=== PATIENT | male | born 1950 | race African-American/Black ===

== ENCOUNTER 2017-09-22 10:23 | Emergency (ER) | payer OTHER ==
[~2017-09-22] VITALS: Ht 172.7 cm; Wt 71.7 kg
--- NOTE | ~2017-09-22 | EKG ---
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: JLJESSICA : 1950 Requested By: Antonio Pang Order Number: [id number] MD: Damien De Leon Measurements Intervals [place] Rate: 95 P: 45 ID: 112 QRS: -9 QRSD: 82 T: 85 QT: 354 QTc: 445 Interpretive Statements Sinus rhythm Atrial premature complexes Borderline short ID interval Tall R wave in V2, consider RVH or PMI Minimal ST elevation, anterior leads Compared to ECG 01/24/2015 15:29:48 Atrial premature complex(es) now present Myocardial infarct finding now present ST (T wave) deviation now present Poor R-wave progression no longer present Early repolarization no longer present Electronically Signed On 09-22-2017 12:47:20 CDT by Damien De Leon [email or web address] <ELECTRONICALLY SIGNED> By: Damien De Leon MD 09/22/17 1247 104 1042 Damien De Leon MD /EPI
[~2017-09-22 10:23] MED LIST: ASPIRIN EC81 M1 PO; AZOR 10-40 MG1 EACH PO; COLACE100 MG PO; FLOMAX0.4 MG PO; GLIPIZIDE ER5 MG; GLIPIZIDE5 MG PO; GLUCOPHAGE1000 MG PO; LISINOPRIL40 MG; NORCO 5-325 TA1 EACH PO; PRINIVIL20 M1 PO; SENOKOT-S1 TA1 PO; SIMVASTATIN40 MG PO; TOPROL XL100 MG PO; TOPROL XL25 MG PO; ZOFRAN ODT4 MG PO
[2017-09-22] MEDS ORDERED: VITAMIN D1000 UNI1 PO (10:34)
[2017-09-22] MEDS ORDERED: CENTRUM SILVER1 EAC4 PO (10:34)
[2017-09-22 10:47] LABS: ABSOLUTE NEUTROPHILS 7.6 thou/uL (1.4-8.2); BASOPHILS 0.8 % (0.0-2.0); EOSINOPHILS 0.5 % (0.0-3.0); HEMATOCRIT 34.3 % (42.0-52.0); HEMOGLOBIN 11.1 gm/dL (14.0-18.0); LYMPHOCYTES 13.2 % (24.0-44.0); MCH 28.8 pg (26.0-34.0); MCHC 32.4 g/dL (28.0-37.0); MCV 88.8 fL (80.0-100.0); MONOCYTES 3.2 % (1.0-8.0); PLATELET COUNT 276 thou/uL (150-400); POLYS 82.3 % (36.0-66.0); RBC 3.86 mil/uL (4.50-6.00); RDW 14.5 % (10.5-14.5); WBC 9.2 thou/uL (4.0-11.0)
[2017-09-22 10:56] LABS: ANION GAP 12 mmol/L (7-16); BUN 57 mg/dL (7-18); CALCIUM 9.6 mg/dL (8.5-10.1); CHLORIDE 112 mmol/L (98-107); CO2 24 mmol/L (21-32); CREATININE 3.4 mg/dL (0.7-1.3); GLUCOSE 208 mg/dL (74-106); POTASSIUM 4.6 mmol/L (3.5-5.1); SODIUM 148 mmol/L (136-145)
[2017-09-22 11:00] LABS: PROTIME 10.5 Seconds (9.3-11.4)
[2017-09-22 11:04] LABS: MAGNESIUM 2.3 mg/dL (1.8-2.4); SGOT 17 U/L (15-37); SGPT 17 U/L (30-65); TOTAL BILIRUBIN 0.2 mg/dL (<0.1-1.0); TOTAL PROTEIN 7.4 g/dL (6.4-8.2); TROPONIN-I < 0.04 ng/mL (<0.06)
[2017-09-22 12:05] LABS: URINE BILIRUBIN NEGATIVE (Negative); URINE BLOOD 1+ (Negative); URINE CLARITY CLEAR; URINE COLOR YELLOW; URINE GLUCOSE-RANDOM* NEGATIVE (Negative); URINE KETONES NEGATIVE (Negative); URINE LEUKOCYTES-REFLEX NEGATIVE (Negative); URINE NITRITE-REFLEX NEGATIVE (Negative); URINE PROTEIN (DIPSTICK) 3+ (Negative); URINE SPECIFIC GRAVITY 1.025 (1.005-1.035); URINE UROBILINOGEN 0.2 E.U./dl (0.2-1.0)
[2017-09-22 12:19] LABS: HYALINE CASTS 4-10 Moderate /LPF (None Seen); SQUAMOUS 0-3 Few /LPF (0-3)
[2017-09-22 12:20] LABS: URINE WBC-REFLEX 0-5 Rare /HPF (0-5)
[2017-09-22 12:21] LABS: URINE RBC 3-10 Few /HPF (0-2)
[2017-09-22 12:22] LABS: AMORPHOUS URATES Moderate /LPF (None Seen); BACTERIA-REFLEX 1-9 Few /HPF (None Seen)
== END 2017-09-22 13:40 | disposition home or self-care (01) ==
LOC: ER 10:23
PROVIDERS: Physician Assistant
DX: R41.82 Altered mental status, unspecified (principal); E86.0 Dehydration; G45.9 Transient cerebral ischemic attack, unspecified; I12.9 Hypertensive chronic kidney disease with stage 1 through stage 4 chronic kidney disease, or unspecified chronic kidney disease; N18.9 Chronic kidney disease, unspecified; E11.22 Type 2 diabetes mellitus with diabetic chronic kidney disease; E78.5 Hyperlipidemia, unspecified

== ENCOUNTER 2018-01-31 15:39 | Emergency (ER) | payer OTHER ==
[~2018-01-31] VITALS: Ht 172.7 cm; Wt 71.2 kg
--- NOTE | ~2018-01-31 | EKG ---
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 : 1950 Requested By: Jorge Wu Order Number: [id number] MD: Damien De Leon Measurements Intervals [place] Rate: 104 P: 18 [place]: 120 QRS: -20 QRSD: 89 T: 104 QT: 330 QTc: 434 Interpretive Statements Sinus tachycardia Borderline left axis deviation RSR' in V1 or V2, right VCD or RVH Abnrm T, lateral leads, similar to prior EKG Baseline wander in lead(s) V6 Compared to ECG 09/22/2017 10:42:24 Electronically Signed On 02-01-2018 16:53:46 CDT by Damien De Leon [email or web address] <ELECTRONICALLY SIGNED> By: Damien De Leon MD 02/01/18 1653 1615 161 Damien De Leon MD /EPI
[~2018-01-31 15:39] MED LIST changes: +CENTRUM SILVER1 EAC4 PO; +VITAMIN D1000 UNI1 PO
[2018-01-31 16:23] LABS: ABSOLUTE NEUTROPHILS 6.7 thou/uL (1.4-8.2); BASOPHILS 0.5 % (0.0-2.0); EOSINOPHILS 1.5 % (0.0-3.0); HEMATOCRIT 32.4 % (42.0-52.0); HEMOGLOBIN 10.7 gm/dL (14.0-18.0); LYMPHOCYTES 6.3 % (24.0-44.0); MCHC 32.9 g/dL (28.0-37.0); MCV 88.1 fL (80.0-100.0); MONOCYTES 4.6 % (1.0-8.0); PLATELET COUNT 280 thou/uL (150-400); POLYS 87.1 % (36.0-66.0); RBC 3.68 mil/uL (4.50-6.00); RDW 13.9 % (10.5-14.5); WBC 7.6 thou/uL (4.0-11.0)
[2018-01-31 16:34] LABS: ANION GAP 8 mmol/L (7-16); BUN 31 mg/dL (7-18); CALCIUM 9.7 mg/dL (8.5-10.1); CHLORIDE 103 mmol/L (98-107); CO2 27 mmol/L (21-32); CREATININE 2.7 mg/dL (0.7-1.3); GLUCOSE 194 mg/dL (74-106); POTASSIUM 4.5 mmol/L (3.5-5.1); SODIUM 138 mmol/L (136-145)
[2018-01-31 16:43] LABS: ALBUMIN 3.5 g/dL (3.4-5.0); MAGNESIUM 1.8 mg/dL (1.8-2.4); SGOT 16 U/L (15-37); SGPT 14 U/L (30-65); TOTAL BILIRUBIN 0.3 mg/dL (<0.1-1.0); TROPONIN-I <0.06 ng/mL (<0.06)
[2018-01-31 17:47] LABS: URINE BILIRUBIN NEGATIVE (Negative); URINE BLOOD TRACE (Negative); URINE CLARITY CLEAR; URINE COLOR YELLOW; URINE GLUCOSE-RANDOM* 1+ (Negative); URINE KETONES NEGATIVE (Negative); URINE LEUKOCYTES-REFLEX NEGATIVE (Negative); URINE NITRITE-REFLEX NEGATIVE (Negative); URINE PROTEIN (DIPSTICK) 3+ (Negative); URINE SPECIFIC GRAVITY 1.025 (1.005-1.035); URINE UROBILINOGEN 0.2 E.U./dl (0.2-1.0)
[2018-01-31 17:54] LABS: BACTERIA-REFLEX 1-9 Few /HPF (None Seen); FINE GRANULAR CASTS 0-3 Few /LPF (None Seen); MUCUS None Seen strn/LPF (None Seen); SQUAMOUS 0-3 Few /LPF (0-3); URINE RBC 0-2 Rare /HPF (0-2); URINE WBC-REFLEX 0-5 Rare /HPF (0-5)
[2018-01-31 17:56] LABS: AMP/METHAMP Negative (Negative); BARBITURATES Negative (Negative); BENZODIAZEPINES Negative (Negative); COCAINE Negative (Negative); METHADONE Negative (Negative); OPIATES Negative (Negative); PCP Negative (Negative)
[2018-01-31 18:03] LABS: CRYSTALS None Seen /LPF (None Seen)
== END 2018-01-31 18:32 | disposition home or self-care (01) ==
LOC: ER 15:39
PROVIDERS: Emergency Medicine
DX: R41.82 Altered mental status, unspecified (principal); R50.9 Fever, unspecified; D64.9 Anemia, unspecified; N18.9 Chronic kidney disease, unspecified; I12.9 Hypertensive chronic kidney disease with stage 1 through stage 4 chronic kidney disease, or unspecified chronic kidney disease; E11.9 Type 2 diabetes mellitus without complications; E78.5 Hyperlipidemia, unspecified; Z90.49 Acquired absence of other specified parts of digestive tract; Z86.73 Personal history of transient ischemic attack (TIA), and cerebral infarction without residual deficits

== ENCOUNTER 2019-07-27 11:04 | Inpatient (IN) | payer MEDICARE ==
[~2019-07-27] VITALS: Ht 172.7 cm; Wt 66.8 kg
[2019-07-27 11:11] VITALS: BP 144/96
[2019-07-27 11:31] LABS: ABSOLUTE NEUTROPHILS 4.6 thou/uL (1.4-8.2); BASOPHILS 1.1 % (0.0-2.0); EOSINOPHILS 1.3 % (0.0-3.0); HEMATOCRIT 36.6 % (42.0-52.0); HEMOGLOBIN 11.8 gm/dL (14.0-18.0); LYMPHOCYTES 26.8 % (24.0-44.0); MCH 29.7 pg (26.0-34.0); MCHC 32.2 g/dL (28.0-37.0); MCV 92.3 fL (80.0-100.0); MONOCYTES 2.7 % (1.0-8.0); PLATELET COUNT 239 thou/uL (150-400); POLYS 68.1 % (36.0-66.0); RBC 3.96 mil/uL (4.50-6.00); RDW 14.5 % (10.5-14.5); WBC 6.8 thou/uL (4.0-11.0)
[2019-07-27 11:32] LABS: ANION GAP 7 mmol/L (7-16); BUN 53 mg/dL (7-18); CALCIUM 9.8 mg/dL (8.5-10.1); CHLORIDE 112 mmol/L (98-107); CO2 26 mmol/L (21-32); CREATININE 3.9 mg/dL (0.7-1.3); GLUCOSE 116 mg/dL (74-106); POTASSIUM 5.8 mmol/L (3.5-5.1); SODIUM 145 mmol/L (136-145)
[2019-07-27 11:42] LABS: ALBUMIN 3.7 g/dL (3.4-5.0); SGOT 15 U/L (15-37); SGPT 20 U/L (30-65); TOTAL BILIRUBIN 0.3 mg/dL (<0.1-1.0); TOTAL PROTEIN 7.7 g/dL (6.4-8.2); TROPONIN-I <0.06 ng/mL (<0.06)
[2019-07-27 12:27] LABS: URINE BILIRUBIN NEGATIVE (Negative); URINE BLOOD 2+ (Negative); URINE CLARITY SL CLOUDY; URINE COLOR YELLOW; URINE GLUCOSE-RANDOM* NEGATIVE (Negative); URINE KETONES NEGATIVE (Negative); URINE LEUKOCYTES-REFLEX 1+ (Negative); URINE NITRITE-REFLEX NEGATIVE (Negative); URINE PROTEIN (DIPSTICK) 2+ (Negative); URINE SPECIFIC GRAVITY 1.025 (1.005-1.035); URINE UROBILINOGEN 0.2 E.U./dl (0.2-1.0)
[2019-07-27 12:34] LABS: CASTS None Seen /LPF (None Seen); RENAL EPITHELIAL CELLS 0-3 Few /LPF (None Seen); SQUAMOUS 0-3 Few /LPF (0-3); TRANSITIONAL EPITHEL CELL 4-10 Moderate /LPF (None Seen)
[2019-07-27 12:35] LABS: AMORPHOUS URATES Moderate /LPF (None Seen); URINE RBC 0-2 Rare /HPF (0-2); URINE WBC-REFLEX 6-15 Few /HPF (0-5)
[2019-07-27 13:14] VITALS: BP 165/96
[2019-07-27 14:47] LABS: CALCIUM 9.2 mg/dL (8.5-10.1); CREATININE 3.9 mg/dL (0.7-1.3)
[2019-07-27 14:52] LABS: POTASSIUM 6.8 mmol/L (3.5-5.1)
[2019-07-27 15:01] VITALS: BP 143/90
--- NOTE | 2019-07-27 16:33 | NUR ---
PT ARRIVED TO UNIT FROM ER AT APPROX 1515 BY ER STAFF. PT ALERT, ORIENTED TO PERSON, PT STATED MONTH WAS NOVEMBER. PT SLOW TO RESPOND, HX STROKE. PT OCCASIONALLY WILL STARE WHEN ASKED QUESTIONS, SOMETIMES REPLYING WITH ANSWERS. O2 SATS WNL ON ROOM AIR. DENIES CP/SOA. PT UP X1 ASSIST TOLERATING FAIR. ADMISSION COMPLETE, CONSENTS SIGNED. TELE STRIP PRINTED AND DOCUMENTED. WILL FOLLOW FURTHER ORDERS. DENIES NEEDS AT THIS TIME. WILL CONTINUE TO MONITOR AND FOLLOW POC.
[2019-07-27 17:56] LABS: MAGNESIUM 2.3 mg/dL (1.8-2.4)
[2019-07-27 17:57] LABS: POTASSIUM 5.4 mmol/L (3.5-5.1)
[2019-07-27 20:08] VITALS: BP 149/79
[2019-07-28 04:04] VITALS: BP 158/86
[2019-07-28 05:30] LABS: BASOPHILS 1.2 % (0.0-2.0); HEMATOCRIT 29.1 % (42.0-52.0); LYMPHOCYTES 36.6 % (24.0-44.0); MCH 30.9 pg (26.0-34.0); MCHC 34.2 g/dL (28.0-37.0); MCV 90.3 fL (80.0-100.0); MONOCYTES 4.9 % (1.0-8.0); PLATELET COUNT 187 thou/uL (150-400); POLYS 55.3 % (36.0-66.0); RBC 3.23 mil/uL (4.50-6.00); RDW 13.9 % (10.5-14.5); WBC 5.5 thou/uL (4.0-11.0)
[2019-07-28 06:00] LABS: CALCIUM 8.5 mg/dL (8.5-10.1); MAGNESIUM 1.9 mg/dL (1.8-2.4)
[2019-07-28 06:00] LABS: URINE BILIRUBIN NEGATIVE (Negative); URINE BLOOD 2+ (Negative); URINE CLARITY CLEAR; URINE COLOR YELLOW; URINE GLUCOSE-RANDOM* NEGATIVE (Negative); URINE KETONES NEGATIVE (Negative); URINE LEUKOCYTES NEGATIVE (Negative); URINE NITRITE NEGATIVE (Negative); URINE PROTEIN (DIPSTICK) 2+ (Negative); URINE SPECIFIC GRAVITY 1.015 (1.005-1.035); URINE UROBILINOGEN 0.2 E.U./dl (0.2-1.0)
[2019-07-28 06:09] LABS: URINE PROTEIN-RANDOM* 93.4 mg/dL (<11.9)
[2019-07-28 06:32] LABS: CREATININE 2.9 mg/dL (0.7-1.3); POTASSIUM 4.4 mmol/L (3.5-5.1)
[2019-07-28 06:40] LABS: SQUAMOUS 0-3 Few /LPF (0-3)
[2019-07-28 06:41] LABS: CASTS None Seen /LPF (None Seen); MUCUS 0-3 Light strn/LPF (None Seen)
[2019-07-28 06:42] LABS: BACTERIA None Seen /HPF (None Seen); CRYSTALS None Seen /LPF (None Seen); URINE RBC 3-10 Few /HPF (0-2); URINE WBC 0-5 Rare /HPF (0-5)
[2019-07-28 07:35] VITALS: BP 163/101
--- NOTE | 2019-07-28 13:20 | NUR ---
PT CARE ASSUMED AT 0700, PT ALERT AND ORIENTED X1, CONFUSED AND DELAYED RESPONSE. PT ABLE TO FOLLOW COMMANDS AND IS AWARE HE IS IN THE HOSPITAL. PT DENIES CHEST PAIN, NAUSEA AND VOMITING. NO SIGNS OF DISTRESS NOTED. ASSESSMENT COMPLETED. PT CALLED A COUPLE OF TIME AND UPDATED ABOUT PT CARE. CALL LIGHT AND TABLE IN REACH. BED AT LOWEST LEVEL WITH ALARM ON. WILL CONTINUE TO MONITOR.
--- NOTE | 2019-07-28 15:26 | NUR ---
Patient admits with UTI. Sp with . She reports patient resides with her in independent walker. Prev CVA in 2011. Short term memory loss from stroke per . Patient does not drive. He uses walker in community. Patient has shower chair and cues patient to wash. 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 patient attends [facility] while at work. Daycare closed at this time due to COVID. PCP is Dr Marlon Buchanan. Thherapy evals in process patient may need rehab/HH at [facility]. Casegmt following
[2019-07-28 16:07] VITALS: BP 167/94
[2019-07-28 19:55] VITALS: BP 164/95
[2019-07-29] VITALS: BP 137/93
[2019-07-29 03:40] VITALS: BP 155/95
[2019-07-29 05:25] LABS: ALBUMIN 3.2 g/dL (3.4-5.0); CALCIUM 8.5 mg/dL (8.5-10.1); CREATININE 2.6 mg/dL (0.7-1.3); PHOSPHORUS 3.8 mg/dL (2.5-4.9); POTASSIUM 4.1 mmol/L (3.5-5.1)
--- NOTE | 2019-07-29 06:48 | NUR ---
SLEPT PART OF SHIFT. CRAWLING OUT OF BED QUICKLY WHEN INCONTINENT. BED ALARM ON BUT PATIENT IS QUICK. MOVED CLOSER TO DESK. FREQUENT ROUNDING. DENIES COMPLAINTS OF PAIN THIS SHIFT. REMAINS ORIENTED TO SELF AND DATE, SOMETIMES TO PLACE. REORIENT NEEDED. PROGRESSING SLOWLY TOWARDS DISCHARGE GOALS. CONTINUE TO ASSES CLOSELY.
[2019-07-29 07:39] VITALS: BP 164/90
--- NOTE | 2019-07-29 09:06 | NUR ---
ASSUMED CARE OF PT AT SHIFT CHANGE, ALERT TO SELF/BDATE, REPORTS OF IMPULSIVITY, NONE THUS FAR. FOOD SET UP TO AVOID HIM JUMPING UP. NO C/O PAIN AT THIS TIME. SEE SEPARATE INTERVENTIONS FOR ASSESSMENTS , SPOUSE CALLED TO VISIT WITH HIM. ENCOURAGED PT TO USE CALL LIGHT AND HE DOES RETURN DEMO SUCCESSFULLY. WILL CONTINUE TO MONITOR
--- NOTE | 2019-07-29 14:09 | NUR ---
[facility] accept however they have checked pt's ins plan and [facility] is out of network with his ins plan. Referral called and faxed to [facility]. They are reviewing and believe they are in network with his plan. out running errands per unit RN and she will be calling in for an update at 5pm today. Nursing to update pt/spouse and advise of any questions or concerns. Pt may be dc ready tomorrow. Will follow.
[2019-07-29 15:38] VITALS: BP 143/74
--- NOTE | 2019-07-29 17:35 | NUR ---
RECEIVED PT'S CARE AROUND 1700; PT. ON CHAIR; ALERT TO PERSON; NO C/O PAIN; ASSESSMENT PERFORMED; SR ON THE MONITOR; AFTER SETTING DINNER ABLE TO EAT INDEPENDENTLY; FALL PRECAUTIONS ON PLACE; MONITORING; ASSESSMENT CHARGED; FOLLOWING POC; WILL PASS ON REPORT;
--- NOTE | 2019-07-29 18:05 | NUR ---
GAVE REPORT TO ANOTHER RN CHARGE IS DISTRIBUTING PT'S TO THOSE WITH LESS. PASSED ON INFO PT'S SPOUSE NEEDS TO BE CALLED IN A.M. D/C WILL BE DISCUSSED AND WHEN THE PT WILL LEAVE FOR REHAB. PT'S SPOUSE ALSO SAID SHE'D CALL IN AM TO FIND OUT UPDATES
[2019-07-29 20:15] VITALS: BP 164/99
[2019-07-30 00:07] LABS: GLYCOHEMOGLOBIN (HGB A1C) 5.8 % (4.8-5.6)
[2019-07-30 04:15] VITALS: BP 175/107
[2019-07-30 05:38] LABS: CREATININE 2.6 mg/dL (0.7-1.3); PHOSPHORUS 4.8 mg/dL (2.5-4.9); POTASSIUM 4.4 mmol/L (3.5-5.1)
--- NOTE | 2019-07-30 05:42 | NUR ---
PATIENTS CARES WERE ASSUMED AT SHIFT CHANGE. PATIENT WAS ASSESSED AND MEDS WERE PASSED. PATIENT WAS UP WITH STAND BY DUE TO HIS UNSTEADY GATE. UP THEW THE NIGHT MULITI TIMES TO URINATE. HOURLY ROUNDING WAS DONE. THE BED IS IN A LOW AND LOCK POSITION. THE BED ALARM IS ON.
[2019-07-30 07:55] VITALS: BP 101/83
--- NOTE | 2019-07-30 09:37 | 2DMMODE ---
[facility] [place] [address] 2 D/M-MODE ECHOCARDIOGRAM Name: RENETTAMicAMIE Room #: 204-P ADM IN M.R.#: [id number] Admission: 07/27/19 Attend Phys: Jesus Turcios MD Discharge: Date of : 46 Report #: [id number] THIS REPORT FOR: cc: Marlon Gamez MD, John R. MD Park, Jin S. MD ~ APPROVED REPORT Study performed: 07/30/2019 08:23:03 EXAM: Comprehensive 2D, Doppler, and color-flow Echocardiogram Patient Location: Echo lab Room #: 204 Status: routine BSA: 1.79 HR: 85 bpm BP: 175/107 mmHg Rhythm: NSR Other Information Study Quality: Adequate Indications Dizziness, uncontrolled HTN. Hx: CVA, HTN, HLP, DLP. 2D Dimensions RVDd: 34.17 mm IVSd: 11.80 (7-11mm) LVOT Diam: 21.54 (18-24mm) LVDd: 40.39 mm PWd: 11.50 (7-11mm) LVDs: 29.52 (25-40mm) Aortic Root: 33.04 mm Volumes Left Atrial Volume (Systole) Single Plane 4CH: 51.68 mL Single Plane 2CH: 55.05 mL LA ESV Index: 32.00 mL/m2 Aortic Valve AoV Peak Pankaj.: 1.03 m/s AO Peak Gr.: 4.56 mmHg LVOT Max P.34 mmHg LVOT Max V: 0.91 m/s JUDITH Vmax: 3.23 cm2 [facility] [address] [place] [address] 2 D/M-MODE ECHOCARDIOGRAM Name: AMIE GUILLEN Room #: 204-P [facility]#: [id number] Admission: 07/27/19 Attend Phys: Jesus Turcios, Discharge: Date of : 46 Report #: [id number] Mitral Valve E/A Ratio: 0.6 MV Decel. Time: 274.70 ms MV E Max Pankaj.: 0.50 m/s MV A Pankaj.: 0.82 m/s MV PHT: 79.66 ms IVRT: 103.81 ms Pulmonary Valve PV Peak Pankaj.: 1.08 m/s PV Peak Gr.: 4.64 mmHg Pulmonary Vein P Vein S: 0.76 m/s P Vein D: 0.30 m/s P Vein S/D Ratio: 2.53 Left Ventricle The left ventricle is normal size. There is normal LV segmental wall motion. Mild basal septal hypertrophy is present. Left ventricular systolic function is hyperdynamic. LVEF is 65-70%. Mild diastolic dysfunction is present (impaired relaxation pattern). Right Ventricle The right ventricle is normal size. The right ventricular systolic function is normal. Atria The left atrium size is normal. The right atrium size is normal. Aortic Valve The aortic valve is normal in structure. Leaflets are mildly thickened and calcified. No aortic regurgitation is present. There is no aortic valvular stenosis. Mitral Valve The mitral valve is normal in structure. Trace mitral regurgitation. No evidence of mitral valve stenosis. Tricuspid Valve The tricuspid valve is normal in structure. Trace tricuspid regurgitation. Unable to assess PA pressure. Pulmonic Valve The pulmonary valve is normal in structure. Trace pulmonic [facility] [place] [address] 2 D/M-MODE ECHOCARDIOGRAM Name: AMIE GUILLEN Room #: 204-P [facility] IN ..#: [id number] Admission: 07/27/19 Attend Phys: Jesus Turcios, Discharge: Date of : 46 Report #: [id number] regurgitation. Great Vessels The aortic root is normal in size. IVC is normal in size and collapses >50% with inspiration. Pericardium There is no pericardial effusion. <Conclusion> The left ventricle is normal size. Left ventricular systolic function is hyperdynamic. Mild diastolic dysfunction is present (impaired relaxation pattern). The right ventricle is normal size. The left atrium size is normal. The aortic valve is normal in structure. Leaflets are mildly thickened and calcified. Trace mitral regurgitation. Trace tricuspid regurgitation. <ELECTRONICALLY SIGNED> By: Sabino Rossi MD 07/30/19934 4 4 Sabino Rossi MD /INF
[2019-07-30 11:05] VITALS: BP 155/81
--- NOTE | 2019-07-30 12:18 | EKG ---
[facility] [place] [address] ELECTROCARDIOGRAM REPORT Name: AMIE GUILLEN Room #: 204-P ADM IN M.R.#: [id number] Admission: 07/27/19 Attend Phys: Jesus Turcios MD Discharge: Date of : 46 Report #: [id number] THIS REPORT FOR: cc: Marlon Gamez MD, John R. MD Couchonnal, Luis F. 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 : 1950 Requested By: Tucker Foster Order Number: [id number] MD: Damien De Leon Measurements Intervals [place] Rate: 83 P: 38 OR: 126 QRS: -16 QRSD: 114 T: 104 QT: 389 QTc: 457 Interpretive Statements Sinus rhythm Borderline intraventricular conduction delay Abnrm T, consider ischemia, anterolateral lds Compared to ECG 07/27/2019 12:12:15 Possible ischemia now present ST (T wave) deviation now present Electronically Signed On 07-30-2019 10:35:30 CDT by Damien De Leon [email or web address] <ELECTRONICALLY SIGNED> By: Damien De Leon MD 07/30/19 1035 4 4 Damien De Leon MD /EPI
--- NOTE | 2019-07-30 12:25 | EKG ---
[facility] [place] [address] ELECTROCARDIOGRAM REPORT Name: AMIE GUILLEN Room #: 204-P ADM IN M.R.#: [id number] Admission: 07/27/19 Attend Phys: Jesus Turcios MD Discharge: Date of : 46 Report #: [id number] THIS REPORT FOR: cc: Marlon Gamez MD, John R. 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 : 1950 Requested By: Antonio Pang Order Number: [id number] MD: Williams Albarado Measurements Intervals [place] Rate: 87 P: 69 FL: 126 QRS: -15 QRSD: 78 T: 64 QT: 353 QTc: 425 Interpretive Statements Sinus rhythm Borderline left axis deviation Abnormal R-wave progression, early transition Compared to ECG 01/31/2018 16:15:40 Sinus tachycardia no longer present Lateral T wave abnormality is no longer present Electronically Signed On 07-27-2019 16:25:41 CDT by Williams Albarado [email or web address] <ELECTRONICALLY SIGNED> By: Williams Albarado MD, [facility] 07/27/19 1625 1212 1212 Williams Albarado MD, [facility] /EPI
[2019-07-30] MEDS ORDERED: PANTOPRAZOLE SO40 M1 PO (13:05)
[2019-07-30] MEDS ORDERED: B-12500 MCG PO (13:05)
[2019-07-30] MEDS ORDERED: MIRALAX17 GM PO (13:05)
[2019-07-30] MEDS ORDERED: CARDIZEM CD 18180 M3 PO (13:08)
--- NOTE | 2019-07-30 14:16 | NUR ---
Pt dcing to [facility] this afternoon at 4pm via their w/c van. Care team updated. Dc orders and covid screening faxed to intake. They have spoken to the pt's ins plan. Chart copy ready to send with the pt. Pt's spouse aware and will be meeting him there to bring him clothes and do his admission paperwork. She is thrilled he will be getting rehab and be stronger upon returning home. Nursing to call report.
[2019-07-30 15:20] VITALS: BP 161/83
--- NOTE | 2019-07-30 16:08 | NUR ---
ASSUMMED PT CARE AT APPROXIMATELY 0700. PT AWAKER AND ORIENTED TO PERSON AND PLACE. PT C HX OF DEMENTIA. ASSESSMENT CHARTED. FALL PRECAUTIONS IN PLACE. PT DENIES HAVING CHEST PAIN. PT DENIES HAVING SOB. PT DENIES HAVING ACUTE PAIN. PT DISCHARGING TO SNF FACILITY. REPORT GIVEN TO PATTI CRUZ. NANCY STATED UNDERSTANDING AND DENIED HAVING FURTHER QUESTIONS. EDUCATED FAMILY ABOUT POC. PT STATED UNDERSTANDING AND DENIED HAVING FURTHER QUESTIONS. IV DC. TELE DC. INFORMED DR. WARD ABOUT EKG RESULTS. DR. WARD STATED UNDERSTANDING AND WANTED TO SPEAK C DR. SANCHEZ. DR. SANCHEZ STATED NO NEW ORDERS AND HE DID NOT BELIEVE HE NEEDED TO BE CONSULTED. INFORMED DR. WARD OF PT'S ELEVATED BP. DR. WARD STATED UNDERSTANDING C NO NEW ORDERS. PT SENT TO FACILITY WITH FACESHEET, DISCHARGE EDUCATION, AND DISCHARGE EDUCATION. PT RECIEVED MEDICAL TRANSPORT OFF UNIT. PT RECIEVING MEDICAL TRANSPORT TO SNF. PT COMFORTABLE. PT DENIES HAVING FURTHER CONCERNS. VITAL SIGNS STABLE. BLOOD SUGARS STABLE.
--- NOTE | 2019-08-04 07:10 | HC ---
[facility] [place] [address] CONSULTATION Name: AMIE GUILLEN Room #: 204-P [facility] IN M.R.#: [id number] Admission: 07/27/19 Attend Phys: Jesus Turcios MD Discharge: 07/30/19 Date of : 46 Report #: [id number] THIS REPORT FOR: cc: Marlon Gamez MD,Leonardo Lopez MD, MD ~ CC: Marlon Turcios REASON FOR THE CONSULTATION: Elevated creatinine. REASON FOR THE PRESENTATION: Confusion. HISTORY OF PRESENT ILLNESS: The patient is known to have CVA and unfortunately he is not very accurate on the details of his history. He really does not know why he is here in the hospital. He does not know of any of his medical problems in the past. He was brought by his due to confusion. He was found to be in an acute kidney injury, mandating Nephrology consultation. The patient denies any prior knowledge of kidney problems; however, I am not really sure how accurate those information are. He carries a diagnosis of diabetes mellitus and hypertension. He was found to be hyperkalemic on his presentation; however, this has improved with IV fluid. I was consulted to manage his acute kidney injury. PAST MEDICAL HISTORY: 1. Per medical chart. 2. Diabetes mellitus. 3. Hypertension. ALLERGIES: No known drug allergies. FAMILY HISTORY: Unobtainable given the patient's current confusion and unawareness of his medical problems. SOCIAL HISTORY: He lives with his who brought him to the hospital. No reported drug or alcohol abuse. HOME MEDICATIONS: 1. Metformin. 2. Amlodipine. 3. Simvastatin. 4. Aspirin. 5. Metoprolol. REVIEW OF SYSTEMS: Unobtainable given the patient's current mentation. PHYSICAL EXAMINATION: [facility] [address] [place] [address] CONSULTATION Name: AMIE GUILLEN Room #: 204-P [facility] IN [facility].#: [id number] Admission: 07/27/19 Attend Phys: Jesus Turcios MD Discharge: 07/30/19 Date of : 46 Report #: [id number] GENERAL: He is oriented, but he is not really sure about the details of his presentation. VITAL SIGNS: Temperature is 36.4, blood pressure is 158/86. HEAD AND NECK: No jugular venous distention. CHEST: Decreased air entry bilaterally. ABDOMEN: Soft, nontender with no hepatosplenomegaly. EXTREMITIES: Lower extremities, no edema. LABORATORY VALUES: Hemoglobin is 10.0. Sodium is 140. Potassium is 4.4. BUN is 43. Creatinine is 2.9. UA showed some protein with some white blood cells and red cells. Urine culture is pending. IMAGING: Ultrasound of the kidneys was consistent with bilateral renal cysts. ASSESSMENT, IMPRESSION, PLAN: 1. Acute kidney injury. 2. Chronic kidney disease, unknown baseline. 3. Bilateral renal cysts. 4. Hyperkalemia. 5. The patient's creatinine seems to be improving with hydration, suggesting that this could be all due to poor oral intake, responding to IV fluid resuscitation. 6. He does have an evidence of chronic kidney disease based on his UA and ultrasound finding. 7. At this point, I will continue with the IV fluid. 8. His hyperkalemia issues have resolved. 9. We will see where his kidney function will settle. 10. No nephrotoxins. 11. Watch urine electrolytes. 12. Watch urine output. 13. We will continue to follow. <ELECTRONICALLY SIGNED> By: Leonardo Chamberlain MD 08/04/19 0710 0743 0806 Leonardo Chamberlain MD /nt
== END 2019-07-30 16:00 | DRG 682 ==
LOC: ER 11:04 → 2N 13:28 → EROBS 13:28 → 2N 15:04
PROVIDERS: Hospitalist; Nurse Practitioner; Physician Assistant; ADMIT Internal Medicine
DX: N17.0 Acute kidney failure with tubular necrosis (principal); G93.41 Metabolic encephalopathy; N39.0 Urinary tract infection, site not specified; E46 Unspecified protein-calorie malnutrition; N17.9 Acute kidney failure, unspecified; E78.5 Hyperlipidemia, unspecified; E87.6 Hypokalemia; E11.22 Type 2 diabetes mellitus with diabetic chronic kidney disease; F03.90 Unspecified dementia, unspecified severity, without behavioral disturbance, psychotic disturbance, mood disturbance, and anxiety; N18.9 Chronic kidney disease, unspecified; I12.9 Hypertensive chronic kidney disease with stage 1 through stage 4 chronic kidney disease, or unspecified chronic kidney disease; E87.5 Hyperkalemia; N28.1 Cyst of kidney, acquired; E86.0 Dehydration; Z87.891 Personal history of nicotine dependence; Z86.73 Personal history of transient ischemic attack (TIA), and cerebral infarction without residual deficits; Z68.22 Body mass index [BMI] 22.0-22.9, adult
CPT/HCPCS: 10081

== ENCOUNTER 2019-08-09 13:25 | Inpatient (IN) | payer MEDICARE ==
[~2019-08-09] VITALS: Ht 172.7 cm; Wt 81.6 kg
[~2019-08-09 13:25] MED LIST changes: +B-12500 MCG PO; +CARDIZEM CD 18180 M3 PO; +MIRALAX17 GM PO; +PANTOPRAZOLE SO40 M1 PO
[2019-08-09 13:28] VITALS: BP 179/86
[2019-08-09] MEDS ORDERED: CLONIDINE HCL0.2 M2 PO (14:00)
[2019-08-09] MEDS ORDERED: LIPITOR 20 MG T20 M1 PO (14:01)
[2019-08-09 14:13] LABS: ABSOLUTE NEUTROPHILS 4.6 thou/uL (1.4-8.2); EOSINOPHILS 2.1 % (0.0-3.0); HEMATOCRIT 27.4 % (42.0-52.0); HEMOGLOBIN 9.1 gm/dL (14.0-18.0); LYMPHOCYTES 19.3 % (24.0-44.0); MCH 30.4 pg (26.0-34.0); MCHC 33.3 g/dL (28.0-37.0); MCV 91.1 fL (80.0-100.0); MONOCYTES 7.2 % (1.0-8.0); PLATELET COUNT 234 thou/uL (150-400); POLYS 70.4 % (36.0-66.0); RBC 3.01 mil/uL (4.50-6.00); WBC 6.5 thou/uL (4.0-11.0)
[2019-08-09 14:25] LABS: CREATININE 3.4 mg/dL (0.7-1.3); MAGNESIUM 2.3 mg/dL (1.8-2.4); POTASSIUM 4.8 mmol/L (3.5-5.1)
[2019-08-09 14:56] LABS: URINE BILIRUBIN NEGATIVE (Negative); URINE BLOOD TRACE (Negative); URINE CLARITY CLEAR; URINE COLOR YELLOW; URINE GLUCOSE-RANDOM* TRACE (Negative); URINE KETONES NEGATIVE (Negative); URINE LEUKOCYTES-REFLEX NEGATIVE (Negative); URINE NITRITE-REFLEX NEGATIVE (Negative); URINE PROTEIN (DIPSTICK) 2+ (Negative); URINE UROBILINOGEN 0.2 E.U./dl (0.2-1.0)
[2019-08-09 15:11] LABS: BACTERIA-REFLEX None Seen /HPF (None Seen); CASTS None Seen /LPF (None Seen); SQUAMOUS None Seen /LPF (0-3); URINE RBC None Seen /HPF (0-2); URINE WBC-REFLEX 0-5 Rare /HPF (0-5)
[2019-08-09 15:12] LABS: CRYSTALS None Seen /LPF (None Seen)
--- NOTE | 2019-08-09 15:23 | EKG ---
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[facility] : 1950 Requested By: Odilon Gomez Order Number: [id number] MD: Damien De Leon Measurements Intervals [place] Rate: 67 P: 26 DC: 143 QRS: -10 QRSD: 85 T: 40 QT: 390 QTc: 412 Interpretive Statements Sinus rhythm Abnormal R-wave progression, early transition Minimal ST elevation, anterior leads Compared to ECG 07/30/2019 08:45:26 ST (T wave) deviation now present Possible ischemia no longer present Electronically Signed On 08-09-2019 15:21:43 CDT by Damien De Leon [email or web address] <ELECTRONICALLY SIGNED> By: Damien De Leon MD 08/09/19 1521 1404 1404 Damien De Leon MD /EPI
[2019-08-09 16:02] VITALS: BP 182/55
[2019-08-09 16:12] VITALS: BP 191/92
[2019-08-09 17:11] VITALS: BP 200/107
[2019-08-09 17:15] VITALS: BP 197/102
[2019-08-09 19:44] VITALS: BP 211/94
--- NOTE | 2019-08-09 20:43 | NUR ---
VSS-AFEBRILE. ORIENTED X 2-3, CAN GET CONFUSED AND FORGETFUL. LUNGS CLEAR-ROOM AIR. NPO PER DR BELTRAN UNTIL SPEECH THERAPY EVALUATES DUE TO PREVIOUS DYSPHAGIA. INCONTINENT OF BOWEL AND BLADDER. SKIN INTACT. FALL PRECAUTIONS IN PLACE.
--- NOTE | 2019-08-10 02:50 | NUR ---
PT CARE ASSUMED AT 1900 WITH PT IN BED WATCHING TV.PT IS UP WITH MAX ASSIST X2 AND ON BEDREST.PT A/O X3.PT IS INCONTINENT TO BOWEL AND BLADDER.PT CAN REPOSITION SELF.PT IS ON ROOM AIR AND ACCUCHECK ACHS WITH SSI.PT IV IS ON THE LT WRIST WITH 0.45NS @50CC/HR.PT HAVING HIGH BP AND PLACED ON HYDRALAZIN 10MG PO.WILL CONTINUE TO MONITOR PER POC
[2019-08-10 04:04] VITALS: BP 199/110
[2019-08-10 05:59] LABS: ABSOLUTE NEUTROPHILS 3.2 thou/uL (1.4-8.2); BASOPHILS 1.1 % (0.0-2.0); EOSINOPHILS 3.3 % (0.0-3.0); HEMATOCRIT 29.8 % (42.0-52.0); HEMOGLOBIN 9.8 gm/dL (14.0-18.0); LYMPHOCYTES 25.1 % (24.0-44.0); MCH 30.3 pg (26.0-34.0); MCV 91.8 fL (80.0-100.0); MONOCYTES 6.8 % (1.0-8.0); PLATELET COUNT 242 thou/uL (150-400); POLYS 63.7 % (36.0-66.0); RBC 3.25 mil/uL (4.50-6.00); RDW 14.6 % (10.5-14.5); WBC 5.1 thou/uL (4.0-11.0)
[2019-08-10 06:11] LABS: CALCIUM 8.8 mg/dL (8.5-10.1); CREATININE 2.9 mg/dL (0.7-1.3); MAGNESIUM 2.2 mg/dL (1.8-2.4); PHOSPHORUS 4.2 mg/dL (2.5-4.9); POTASSIUM 4.7 mmol/L (3.5-5.1); TOTAL BILIRUBIN 0.2 mg/dL (<0.1-1.0)
[2019-08-10 06:22] LABS: % SATURATION 26 % (20-39); IRON 73 ug/dL (65-175); TIBC 278 ug/dL (250-450)
[2019-08-10 07:35] VITALS: BP 199/89
[2019-08-10 16:36] VITALS: BP 188/86
--- NOTE | 2019-08-10 18:44 | NUR ---
PT IS AOX3, FORGETFUL. PT DOESN'T CALL APPROPRIATELY, NURSE ENCOURAGED PT TO CALL FOR ASSISTANCE. PT HAS A GOOD APPETITE. LARGE BM TODAY, INCONTINENT OF B/B. FALL PRECAUTIONS IN PLACE. IV REMAINS PATIENT IN LEFT WRIST. WILL CONTINUE TO MONTIOR.
[2019-08-10 19:25] VITALS: BP 192/91
[2019-08-10 22:35] VITALS: BP 174/92
--- NOTE | 2019-08-11 04:07 | NUR ---
Assumed pt care at 1900. Pt A/OX3,forgetful.Asking for Jim PT-"he said he'll be back to ambulate with me otherwise I don't get to go home tomorrow" Nurse ambulated twice on the hallway with nurse, pt noted to be carmen-crossing his legs when walking and needs reminders to focus on the walk, weak/unsteady; up with GB/RW. Denies pain on assessment. BP elevated at HS medicated per EMAR and somewhat effective. Pt is incontinent of bladder, pericare done as needed. Fall precautions in place. Resting quietly at this time will continue to monitor pt.
[2019-08-11 04:17] VITALS: BP 149/80
[2019-08-11 08:15] VITALS: BP 188/83
--- NOTE | 2019-08-11 13:30 | NUR ---
PT ADMITTED RELATED TO WEAKNESS, INCREASED CONFUSION. CM REVIEWED CHART AND SPOKE WITH CARE TEAM. CM ATTEMPTED PCS TO PT'S NUMEROUS TIMES YESTERDAY WITH NO SUCCESS. CM FOUND A CORRECT NUMBER HOME: CELL: . CM SPOKE WITH SPOUSE AND SHE INDICATED THAT THEY LIVE IN AN APARTMENT WITH A RAMP TO ENTER. SHE INDICATED HE HAD USED A FWW TO ASSIST WITH MOBILITY AND SHE HAD A GAIT BELT. PT HAD BEEN AT [facility] UNTIL MONDAY 08/07 AND THAT PT HADN'T BEEN HIMSELF SO HER ADMITTED FRIDAY TO [facility]. PT WAS TO START HH SERVICES WITH [facility]. SPOUSE IS AGREEABLE WITH PT RETURNING HOME AND RESUMING HH SERVICES WITH [facility] IS APPROPRIATE ONCE MEDICALLY STABLE. PT'S PCP IS DR. FAIZA BAUER IN OP. REFERRAL SENT TO [facility]. CM TO FOLLOW INDICATED WITH DC PLANNING.
--- NOTE | 2019-08-11 16:45 | NUR ---
FAXED REFERRAL TO [facility] RECEIVED CONFIRMTION AND WILL F/U WITH THEM IN THE AM. PT WAS TO START HH WITH THEM PRIOR TO ADM.
[2019-08-11 16:51] VITALS: BP 182/83
--- NOTE | 2019-08-11 18:08 | NUR ---
PT IS AOX3, VSS, NO C/O PAIN. PT NEEDS REDIRECTION TO STAY IN BED/CHAIR. FALL PRECAUTION IN PLACE. PT HAS A GOOD APPETITE. IV REMAINS PATENT WITH FLUIDS RUNNING. CALL LIGHT IN PLACE WILL CONTINUE TO MONITOR.
[2019-08-11 19:33] VITALS: BP 168/93
[2019-08-12 03:45] VITALS: BP 166/91
--- NOTE | 2019-08-12 04:46 | NUR ---
Assumed pt care at 1900. A/OX3,calling appropriately for help and looking forward to discharge home today. Denies pain on assessment. Up with AX1, RW/GB. Incontinent of bladder,but also voids per urinal at times. Pt resting quietly at this time w/o distress, fall precautions in place. Will continue to monitor pt.
[2019-08-12 05:54] LABS: HEMATOCRIT 25.1 % (42.0-52.0); HEMOGLOBIN 8.4 gm/dL (14.0-18.0); MCH 30.2 pg (26.0-34.0); MCHC 33.4 g/dL (28.0-37.0); MCV 90.5 fL (80.0-100.0); RBC 2.77 mil/uL (4.50-6.00); RDW 14.5 % (10.5-14.5); WBC 5.4 thou/uL (4.0-11.0)
[2019-08-12 06:06] LABS: CALCIUM 8.1 mg/dL (8.5-10.1); MAGNESIUM 2.1 mg/dL (1.8-2.4); POTASSIUM 4.6 mmol/L (3.5-5.1)
[2019-08-12 08:03] VITALS: BP 149/81
--- NOTE | 2019-08-12 13:44 | NUR ---
ON-GOING ASSESSMENT: CM REVIEWED CHART AND SPOKE WITH ATTENDING. PT IS PROGRESSING WELL TOWARDS DISCHARGE GOALS. PLANS ARE FOR LIKELY DISCHARGE TOMORROW HOME WITH HH. CHAIR FINISHER NOTIFIED [facility]. CM WILL CONTINUE TO FOLLOW TO ASSIST NEEDED.
[2019-08-12 15:59] VITALS: BP 175/78
--- NOTE | 2019-08-12 18:45 | NUR ---
Assumed pt care at 7am.Pt in bed alert and oriented but forgetful.Assessment completed.vss.Pt tolerated meds and diet.Dr Baker here,order noted.Pt ambulated in the room with therapist.Fair endurance noted.Assist pt with tray setup at all meals.Good appetite noted.Will continue to monitor.
[2019-08-12 19:23] VITALS: BP 169/77
[2019-08-13 03:52] VITALS: BP 161/75
--- NOTE | 2019-08-13 05:49 | NUR ---
[facility] PATIENT ALERT AND ORIENTED X PERSON, PLACE AND SITUATION. THOUGHT IT WAS WINTER. ACCUCHECK WAS 186, RECEIVED 3 UNITS LISPRO INSULIN. IV IN LFA WITH FLUIDS INFUSING. DENIES PAIN. PATIENT SLEPT MOST OF NIGHT.
[2019-08-13 07:52] VITALS: BP 208/84
[2019-08-13 07:54] VITALS: BP 181/85
[2019-08-13 08:40] LABS: POTASSIUM 4.9 mmol/L (3.5-5.1)
[2019-08-13 10:26] VITALS: BP 181/85
[2019-08-13] MEDS ORDERED: IRON325 PO (12:42)
[2019-08-13] MEDS ORDERED: CEFUROXIME250 MG PO (12:42)
[2019-08-13 14:16] VITALS: BP 181/85
--- NOTE | 2019-08-13 15:42 | NUR ---
PT DISCHARGING TODAY TO HOME WITH [facility] FAXED DC ORDERS/[facility] RECEIVED CONFIRMATION THEY WILL NOTIFY PT TIME OF VISITS.
--- NOTE | 2019-08-13 15:54 | NUR ---
CARE TEAM INDICATED THAT PT IS MEDICALLY STABLE TO DC HOME THIS DAY. PT IS TO HAVE [facility]. ORDERS SENT. CM CALLED AND SPOKE WITH PT'S SPOUSE SHE WILL BEING CLOTHES TO THE ER ENTERANCE FOR PT AT 1600 AND WILL PICK HIM UP SHORTLY THERAFTER. NO OTHER CM INTERVENTION INDICATED. CASE CLOSED.
--- NOTE | 2019-08-13 15:59 | NUR ---
ASSUMED CARE OF THE PT AT 0700. PT IS VERY INCONTINENT OF URINE WHILE WEARING BRIEFS.BS CONTROLLED BY INSULIN. R FOREARM IV DRY AND INTACT. PT IS STANDBY ASSIST WITH WALKER AND GAITBELT, UNSTEADY ON FEET. PT CAN TURN HIMSELF, BUT NEEDS TO REMINDED. PTS IV REMOVED, PT IS D/C'ING TO HOME WITH HH. NO BM, UNABLE TO COLLECT STOOL SAMPLE. FALL PRECAUTIONS IN PLACE, BED IN THE LOWEST POSITION AND CALL LIGHT IS WITHIN REACH. PTS SPOUSE WILL BE BRINGING CLOTHES AND PT WILL D/C TO HOME. WILL CONTINUE TO MONITOR THE PT.
== END 2019-08-13 16:40 | disposition home health service (06) | DRG 689 ==
LOC: ER 13:25 → EROBS 15:48 → 4S 15:48
PROVIDERS: Emergency Medicine; Internal Medicine; ADMIT Internal Medicine
DX: N39.0 Urinary tract infection, site not specified (principal); N17.0 Acute kidney failure with tubular necrosis; N18.4 Chronic kidney disease, stage 4 (severe); G93.49 Other encephalopathy; I16.0 Hypertensive urgency; R53.81 Other malaise; E86.0 Dehydration; E11.22 Type 2 diabetes mellitus with diabetic chronic kidney disease; I12.9 Hypertensive chronic kidney disease with stage 1 through stage 4 chronic kidney disease, or unspecified chronic kidney disease; N18.9 Chronic kidney disease, unspecified; N28.1 Cyst of kidney, acquired; D64.9 Anemia, unspecified; F03.90 Unspecified dementia, unspecified severity, without behavioral disturbance, psychotic disturbance, mood disturbance, and anxiety; E78.5 Hyperlipidemia, unspecified; Z90.49 Acquired absence of other specified parts of digestive tract; Z79.82 Long term (current) use of aspirin; Z86.73 Personal history of transient ischemic attack (TIA), and cerebral infarction without residual deficits; Z79.899 Other long term (current) drug therapy; Z87.440 Personal history of urinary (tract) infections; Z87.891 Personal history of nicotine dependence
CPT/HCPCS: 10102

== ENCOUNTER 2019-09-21 17:34 | Inpatient (IN) | payer MEDICARE ==
[~2019-09-21] VITALS: Ht 172.7 cm; Wt 65.8 kg
[~2019-09-21 17:34] MED LIST changes: +CEFUROXIME250 MG PO; +CLONIDINE HCL0.2 M2 PO; +IRON325 PO; +LIPITOR 20 MG T20 M1 PO
[2019-09-21 17:40] VITALS: BP 145/76
[2019-09-21 18:25] LABS: ABSOLUTE NEUTROPHILS 5.8 thou/uL (1.4-8.2); BASOPHILS 1.2 % (0.0-2.0); EOSINOPHILS 2.3 % (0.0-3.0); HEMATOCRIT 29.6 % (42.0-52.0); LYMPHOCYTES 22.5 % (24.0-44.0); MCH 30.3 pg (26.0-34.0); MCHC 33.6 g/dL (28.0-37.0); MCV 89.9 fL (80.0-100.0); MONOCYTES 4.6 % (1.0-8.0); PLATELET COUNT 285 thou/uL (150-400); POLYS 69.4 % (36.0-66.0); RDW 13.7 % (10.5-14.5); WBC 8.3 thou/uL (4.0-11.0)
[2019-09-21 18:32] LABS: CALCIUM 8.5 mg/dL (8.5-10.1); CREATININE 3.2 mg/dL (0.7-1.3); POTASSIUM 5.5 mmol/L (3.5-5.1)
[2019-09-21 18:38] LABS: ALBUMIN 3.2 g/dL (3.4-5.0); TOTAL BILIRUBIN 0.1 mg/dL (0.2-1.0); TOTAL PROTEIN 7.5 g/dL (6.4-8.2)
[2019-09-21 19:12] LABS: URINE BILIRUBIN NEGATIVE (Negative); URINE BLOOD TRACE (Negative); URINE CLARITY CLEAR; URINE COLOR YELLOW; URINE GLUCOSE-RANDOM* NEGATIVE (Negative); URINE KETONES NEGATIVE (Negative); URINE LEUKOCYTES-REFLEX NEGATIVE (Negative); URINE NITRITE-REFLEX NEGATIVE (Negative); URINE PROTEIN (DIPSTICK) 2+ (Negative); URINE SPECIFIC GRAVITY 1.025 (1.005-1.035); URINE UROBILINOGEN 0.2 E.U./dl (0.2-1.0)
[2019-09-21 19:26] LABS: SQUAMOUS 4-10 Moderate /LPF (0-3)
[2019-09-21 19:27] LABS: AMORPHOUS URATES Moderate /LPF (None Seen); BACTERIA-REFLEX 1-9 Few /HPF (None Seen); CASTS None Seen /LPF (None Seen); URINE RBC 0-2 Rare /HPF (0-2); URINE WBC-REFLEX 0-5 Rare /HPF (0-5)
[2019-09-21 20:31] VITALS: BP 176/79
[2019-09-21 20:46] VITALS: BP 167/77
[2019-09-21] MEDS ORDERED: NORVASC 2.5 MG2.5 M1 PO (20:46)
[2019-09-21 21:26] VITALS: BP 187/80
[2019-09-21] MEDS ORDERED: CARTIA XT240 M1 PO (22:15)
--- NOTE | 2019-09-22 01:31 | NUR ---
PATIENT ARRIVED FROM ED VIA CART ACCOMPANIED BY ED PERSONEL. PATIENT ALERT AND ORIENTED TO SELF, PLACE, AND TIME WITH SOME PROMPTING. COULD NOT TELL WHY HE WAS HERE EVEN WITH SOME PROMPTING. UP WITH ASSIST OF ONE AND GATEBELT. IV PATENT IN RFA. ACCUCHECK WAS 59 AT 2315. 240ML OF APPLE JUICE GIVEN. ACCUCHECK WAS RETAKEN AT 0007 AND IT WAS 101. PATIENT HAS NO WOUNDS. LUNGS DIMINISHED. SLEPT OFF AND ON DURING NIGHT. DENIES PAIN.
[2019-09-22 04:25] VITALS: BP 174/81
[2019-09-22 06:01] LABS: CALCIUM 8.2 mg/dL (8.5-10.1); CREATININE 2.9 mg/dL (0.7-1.3)
[2019-09-22 06:15] LABS: POTASSIUM 4.5 mmol/L (3.5-5.1)
[2019-09-22 08:10] VITALS: BP 181/94
--- NOTE | 2019-09-22 08:27 | EKG ---
[facility] [place] [address] ELECTROCARDIOGRAM REPORT Name: WILMERAMIE Room #: 435- ADM IN M.R.#: [id number] Admission: 09/21/19 Attend Phys: Tacho Baker MD Discharge: Date of : 46 Report #: [id number] THIS REPORT FOR: cc: FAM - Family physician unknown FAM - Family physician unknown Williams Albarado MD [facility] THIS REPORT FOR: //name// [facility] ED Test Date: 2019-09-21 Test Time: 19:51:49 Pat Name: AMIE GUILLEN Department: Room: [facility] Gender: M Glass Technologist: ABDULAZIZ : 1950 Requested By: Ruth Rivera Order Number: [id number] MD: Williams Albarado Measurements Intervals [place] Rate: 69 P: 32 MT: 149 QRS: -14 QRSD: 86 T: 66 QT: 394 QTc: 422 Interpretive Statements Sinus rhythm Borderline T wave abnormalities ST elevation, anterior leads Compared to ECG 08/09/2019 14:04:20 No significant change was found Electronically Signed On 09-22-2019 8:25:49 CDT by Williams Albarado [email or web address] <ELECTRONICALLY SIGNED> By: Williams Albarado MD, [facility] 09/22/19824 50 50 Williams Albarado MD, [facility] /EPI
--- NOTE | 2019-09-22 12:11 | NUR ---
ASSESSMENT: CM REVIEWED CHART AND SPOKE WITH PATIENT. PT WAS ADMITTED FOR UTI AND IS ON IV ANBX. PT REPORTS THAT HE LIVES IN AN APT WITH HIS . PT REPORTS THEY HAVE 5 STEPS TO ENTER WITH HANDRAILS ON BOTH SIDES. PT REPORTS HAVING A CANE AND WALKER AT HOME FOR AMBULATION. 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 PT REPORTS HE HAS HAD HH IN THE PAST BUT UNSURE WHAT AGENCY IT WAS. PT STATES HE HAS NOT BEEN TO A SNF/POST ACUTE CARE FACILITY. PT/OT HAS BEEN ORDERED FOR PT TO ASSESS HIM. PT DOES NOT FEEL HE WILL NEED HH AT TIME OF DISCHARGE BUT CM WILL FOLLOW PT/OT EVALS. CM WILL CONTINUE TO FOLLOW TO ASSIST NEEDED.
--- NOTE | 2019-09-22 13:44 | NUR ---
ASSUMED CARE OF THE PT AT 0700. PT IS ASSIST X1 WITH GAIT BELT AND WALKER. BS CONTROLLED BY INSULIN, SEE EMAR. DOCTOR WANTS PTS MOST RECENT UA C&S RESULTS FROM PTS PCP, CALLED PCP DR. BAUER AT . PT UP IN CHAIR WITH ALARM ON. PT IS INCONTINENT. SODIUM IS WITHNIN NORMAL LIMITS. PT IS A&OX3, CONFUSED. R FOREARM DRY AND INTACT. SPOKE WITH THE PTS MULTPILE TIMES TODAY REGARDING PTS CARE. FALL PRECAUTIONS IN PLACE, BED IN THE LOWEST POSITION/ ALARM ON, CALL LIGHT IS WITHIN REACH. WILL CONTINUE TO MONITOR THE PT.
[2019-09-22 15:45] VITALS: BP 189/94
[2019-09-22 19:43] VITALS: BP 208/90
[2019-09-23 04:15] VITALS: BP 177/93
--- NOTE | 2019-09-23 04:32 | NUR ---
ASSESSMENT: PT REMAIN ALERT AND ORIENT TIMES TWO, CONFUSED TO TIME/SITUATION. LIKES TO SAT IN CHAIR. INCONT TO B&B. BP ELEVATED SLIGHTLY. STEPHANIE PAIN, SOB AND N/V. IVF INFUSING VIA RFA 20 G IV. NO INSULIN GIVEN FOR BS BEING 143. CONSULT PENDING SINCE 09/21/[address] GUILLORY FOR REANAL FAILURE. WILL ATTEMPT TO CALL THIS CONSULT IN THE AM. DR WOODS WANTS PT'S PCP TO FAX HIS RECENT UA C&S RESULTS. DR. BAUER IS THE PT'S PCP AND HIS NUMBER IS [phone]. PT HAS A NON-PRODUCTIVE COUGH. EFFORT TO COUGH IS GOOD. PT WAS PUT IN BED WITH MINIMAL ASSIST AND GB. PT IS ABLE TO PIVIOT WITH PROMPTING. SLOW PROGRESS TOWARD DC GOAL, WILL CONTINUE TO MONITOR.
[2019-09-23 06:15] LABS: ALBUMIN 2.9 g/dL (3.4-5.0); PHOSPHORUS 4.8 mg/dL (2.5-4.9); POTASSIUM 4.7 mmol/L (3.5-5.1)
[2019-09-23 08:10] VITALS: BP 190/104
--- NOTE | 2019-09-23 13:46 | NUR ---
ON-GOING ASSESSMENT: CM REVIEWED CHART AND SPOKE WITH PATIENT AND ATTENDING. PHYSICIAN WAS RECOMMENDING PT COULD GO HOME WITH POSSIBLE IV ANBX. CM SPOKE WITH PT AND HE DID NOT HAVE A PREFERENCE OF INFUSION COMPANY. CM SENT REFERRAL TO [facility] TO CHECK PATIENTS BENEFITS AND IF HE WERE TO BE ON ERTAPENEM 0.5G FOR 5 DAYS IT WOULD COST HIM 100 DOLLARS TOTAL. CM REACHED OUT TO PTS AND SHE STATES SHE IS NOT COMFORTABLE WITH HIM COMING HOME WITH IV ANBX TODAY. CM REACHED OUT TO PHYSICIAN WHO SPOKE WITH PATIENTS . CM SPOKE WITH DR. WOODS WHO IS GOING TO SPEAK WITH DR. CARDOSO ABOUT PATIENTS RENAL FUNCTION THERE HAS BEEN SOME CONCERN IT IS WORSENING AND HE MAY NEED DIALYSIS SOMETIME IN THE NEAR FUTURE. PT IS ALREADY IN SERVICES WITH [facility] AND CM NOTIFIED THEM THIS AM AND THEY CAN ACCEPT PT BACK TO SERVICES AT DISCHARGE. CM WILL CONTINUE TO FOLLOW TO ASSIST NEEDED.
[2019-09-23 17:10] VITALS: BP 188/103
[2019-09-23 19:07] VITALS: BP 188/107
--- NOTE | 2019-09-23 20:06 | NUR ---
PT A&OX3, VSS, DENIES PAIN. PT BLOOD PRESSURE ELEVATED, DR AWARE AND FOLLOWING TREND. PATIENT NEEDS URINE SAMPLE, PASSED ALONG. FLUIDS DC'D TODAY, IV REMAINS PATENT IN RIGHT FA. NO SIGNS OF DISTESS. WILL CONTINUE TO MONITOR.
[2019-09-23 23:57] LABS: URINE BILIRUBIN NEGATIVE (Negative); URINE BLOOD TRACE (Negative); URINE CLARITY CLEAR; URINE COLOR YELLOW; URINE GLUCOSE-RANDOM* NEGATIVE (Negative); URINE KETONES NEGATIVE (Negative); URINE LEUKOCYTES NEGATIVE (Negative); URINE NITRITE NEGATIVE (Negative); URINE PROTEIN (DIPSTICK) 2+ (Negative); URINE UROBILINOGEN 0.2 E.U./dl (0.2-1.0)
[2019-09-24 00:16] LABS: HYALINE CASTS 0-3 Few /LPF (None Seen); MUCUS None Seen strn/LPF (None Seen); SQUAMOUS 0-3 Few /LPF (0-3)
[2019-09-24 00:17] LABS: BACTERIA None Seen /HPF (None Seen); CRYSTALS None Seen /LPF (None Seen); URINE RBC 0-2 Rare /HPF (0-2); URINE WBC None Seen /HPF (0-5)
--- NOTE | 2019-09-24 01:50 | NUR ---
ASSUMED PT CARE AT APPROXIMATELY 1900. PT WAS AWAKE AND ALERT WITH SOME CONFUSION. PT'S BLOOD PRESSURE ELEVATED, TRANSACTION PROCESSOR NOTIFIED, PRN HYDRALAZINE ORDERED AND GIVEN. PT IS CURRENTLY RESTING IN BED. FALL PRECAUTIONS IN PLACE, CALL LIGHT WITHIN REACH. PT IS PROGRESSING TOWARDS POC GOALS.
[2019-09-24 01:57] VITALS: BP 169/96
[2019-09-24 04:35] VITALS: BP 169/104
[2019-09-24 06:11] LABS: HEMATOCRIT 27.4 % (42.0-52.0); HEMOGLOBIN 9.2 gm/dL (14.0-18.0); MCH 30.2 pg (26.0-34.0); MCHC 33.8 g/dL (28.0-37.0); MCV 89.5 fL (80.0-100.0); RBC 3.06 mil/uL (4.50-6.00); RDW 14.2 % (10.5-14.5); WBC 6.3 thou/uL (4.0-11.0)
[2019-09-24 07:15] VITALS: BP 137/70
[2019-09-24 07:17] LABS: CALCIUM 8.3 mg/dL (8.5-10.1); CREATININE 2.9 mg/dL (0.7-1.3); MAGNESIUM 1.9 mg/dL (1.8-2.4); POTASSIUM 4.7 mmol/L (3.5-5.1)
--- NOTE | 2019-09-24 07:33 | NUR ---
PT'S BP STILL ELEVATED WITH O400 VITALS,HYDRALAZINE ADMINISTERED,EFFECTIVE. REPORT TO AM NURSE.
--- NOTE | 2019-09-24 12:15 | NUR ---
ASSUMED CARE OF THE PT AT 0700. LUNGS ARE CLEAR, HR ELEVATED, PULSES STRONG. PT CAN TURN SELF. PT IS VERY CONFUSED A&Ox3. PT IS INCONTINENT AND FORGETS TO USE URINAL. PT IS VERY WEAK UPION STANDING, WALKER/ GAITBELT IN PLACE.R FOREARM IV DRY AND INTACT. SKIN CLEAR. PT WANTS TO D/C TO HOME W/ HH, NEEDS TEACHING ON HOW TO GIVE ABX, PER DOCTOR. WILL F/U WITH CM TO DETERMINE WHAT STEPS ARE NEXT. FALL PRECAUTIONS IN PLACE, BED IN LOWEST POSITION, BED/CHAIR ALARM ON, LOCKED, CALL LIGHT IS IWTHIN REACH. WILL CONTINUE TO MONITOR THE PT.
--- NOTE | 2019-09-24 13:57 | NUR ---
ON-GOING ASSESSMENT: CM REVIEWED CHART AND SPOKE WITH ATTENDING. PT WILL NEED IV MEROPENEM BID FOR 10DAYS. ATTENDING RECOMMENDS SENDING PT HOME WITH IV ANBX WITH AND INFUSION COMPANY IF THEY ARE COMFORTABLE DOING SO. ATTENDINGS STATES IT HAS TO BE BID AND NOT ONCE A DAY. LUDMILA REACHED OUT TO PT AND HIS AND SHE STATES SHE THOUGHT SHE MADE IT CLEAR TO THE ATTENDING YESTERDAY THAT SHE IS NOT COMFORTABLE AT ALL WITH PATIENT COMING HOME WITH IV ANBX ESPECIALLY TWICE A DAY. LUDMILA REACHED OUT TO [facility] TO SEE IF THEY COULD HAVE A RN OUT DAILY TO HELP ASSIST WITH ANBX AND THEY STATED NO THE MAX AN RN COULD COME IS 2-3 DAYS A WEEK AND EVEN THAT WOULD REQUIRE APPROVAL. PTS IS NOT COMFORTABLE WITH THAT PLAN OR EVEN SETTING UP A TEACHING FOR POSSIBLE HOME IV ANBX. CM NOTIFIED ATTENDING. LUDMILA DISCUSSED THAT CM COULD SEE IF ACUTE REHAB COULD ACCEPT PT DUE TO MEDICAL NECESSITY FOR IV ANBX AND THEY WOULD LIKE TO SEE IF [facility] COULD ACCEPT HIM HE HAS BEEN THERE BEFORE. CM SENT REFERRAL TO [facility]. RHINA ANDERSON AT [facility] SAYS THEY CAN MEDICALLY ACCEPT PATIENT AND WILL SUBMIT FOR INSURANCE AUTH. PT WILL LIKELY REMAIN IN HOSPITAL FOR DURATION OF IV ANBX UNLESS ACUTE REHAB ([facility]) IS ABLE TO GET INSURANCE AUTH. AWAITING FURTHER FEEDBACK FROM [facility] AT THIS TIME. NO LIKELY PLANS OF WEEKEND DISCHARGE UNTIL HEARING BACK FROM [facility] REGARDING INSURANCE AUTHORIZATION STATUS. [facility] MONICA CELL:[phone]
[2019-09-24 15:15] VITALS: BP 140/72
[2019-09-24 19:40] VITALS: BP 148/75
--- NOTE | 2019-09-24 23:50 | NUR ---
ASSUMED PT CARE AT APPROXIMATELY 1900. PT WAS AWAKE IN HIS CHAIR WATCHING TV. VSS, AFEBILE. MEDICATIONS GIVEN ORDERED. PT HAS NOT VOICED ANY C/O OF PAIN OR DISCOMFORT. PT ACCIDENTLY REMOVED IV. CATHETER INTACT. REPLACED IV IN THE RIGHT FOREARM. PT IS CURRENTLY RESTING IN BED. FALL PRECAUTIONS IN PLACE, CALL LIGHT WITHIN REACH. WILL CONTINUE TO MONITOR.
[2019-09-25 03:25] VITALS: BP 151/85
[2019-09-25 08:20] VITALS: BP 178/95
--- NOTE | 2019-09-25 13:57 | NUR ---
PT WORKING WITH THERAPIES ALSO PT WALKED TO BATHROOM. PT GIVEN PRN PAIN MED EARLIER. TAKES MEDS PO AND GIVEN PRN PAIN MED EARLIER.
--- NOTE | 2019-09-25 14:05 | NUR ---
TRIED TO SPEAK WITH TO GIVE UPDATE ON PATIENTS PLAN OF CARE NO PHONE NUMBERS WORKED. LEFT MESSAGE ON ANOTHER TO HAVE CALL BACK.
--- NOTE | 2019-09-25 17:50 | NUR ---
PATIENT SITTING UP IN BED WATCHING TV AND EATING DINNER, BLOOD SUGAR CHECKED NO S/S PER ORDERS. PT STATES NO PAIN OR RESP DISTRESS AT THIS TIME.
[2019-09-25 17:58] VITALS: BP 158/88
[2019-09-25 20:35] VITALS: BP 144/71
--- NOTE | 2019-09-26 03:47 | NUR ---
ASSESSED AT START OF SHIFT, PT RESTING IN BED A&0X3 FORGETFULL. INCONTINENT OF BOWEL AND BLADDER HAD A BM THIS SHIFT. URINAL AT BEDSIDE. EVENING MEDS GIVEN AND PT CISCO IT FINE. BLOODSUGAR CHECKED AND NO COVERAGE NEEDED. FALL PREC IN PLACE AND CALL LIGHT IN REACH WILL CONT WITH POC TILL EOS.
[2019-09-26 04:30] VITALS: BP 152/70
[2019-09-26 07:47] VITALS: BP 145/83
--- NOTE | 2019-09-26 12:07 | NUR ---
PT CARE ASSUMED AT 0700. A&OX4 BUT FORGETFUL. PT UP IN THE RECLINER MOST OF THE DAY. ACHS WITH COVERAGE. FINAL URINE CULTURE BACK WITH NO GROWTH. FALL PROTOCOL IN PLACE. IV PATENT WITH NO REDNESS OR EDEMA. PT IS A VERY HARD STICK, KEEP A CLOSE EYE PLEASE. CALL LIGHT IN REACH. WILL CONTINUE TO MONITOR.
[2019-09-26 14:38] VITALS: BP 140/89
[2019-09-26 16:36] VITALS: BP 140/89
[2019-09-26 17:37] LABS: URINE BILIRUBIN NEGATIVE (Negative); URINE BLOOD NEGATIVE (Negative); URINE CLARITY CLEAR; URINE COLOR YELLOW; URINE GLUCOSE-RANDOM* NEGATIVE (Negative); URINE KETONES NEGATIVE (Negative); URINE LEUKOCYTES-REFLEX NEGATIVE (Negative); URINE NITRITE-REFLEX NEGATIVE (Negative); URINE PROTEIN (DIPSTICK) 2+ (Negative); URINE UROBILINOGEN 0.2 E.U./dl (0.2-1.0)
[2019-09-26 17:43] LABS: SQUAMOUS 0-3 Few /LPF (0-3)
[2019-09-26 17:44] LABS: AMORPHOUS URATES Few /LPF (None Seen); HYALINE CASTS 0-3 Few /LPF (None Seen); URINE WBC-REFLEX 0-5 Rare /HPF (0-5)
[2019-09-26 17:45] LABS: BACTERIA-REFLEX None Seen /HPF (None Seen); URINE RBC None Seen /HPF (0-2)
[2019-09-26 19:40] VITALS: BP 176/80
--- NOTE | 2019-09-27 01:31 | NUR ---
ASSUMED PT CARE AT 1900. PT REPORTS NO PAIN. INCONTINENT. NO INSULIN REQUIRED TONIGHT. A&OX3 TONIGHT - PLEASANT WITH STAFF. ANTIBIOTICS GIVEN PER ORDER. BEEN SLEEPING IN BED FOR MOST THE SHIFT SO FAR. WILL CONTINUE TO MONITOR.
[2019-09-27 01:54] VITALS: BP 176/80
[2019-09-27 04:21] VITALS: BP 183/87
[2019-09-27 05:31] LABS: HEMATOCRIT 24.9 % (42.0-52.0); HEMOGLOBIN 8.3 gm/dL (14.0-18.0); MCH 30.1 pg (26.0-34.0); MCHC 33.4 g/dL (28.0-37.0); MCV 90.1 fL (80.0-100.0); RBC 2.77 mil/uL (4.50-6.00); RDW 14.1 % (10.5-14.5); WBC 4.7 thou/uL (4.0-11.0)
[2019-09-27 05:35] VITALS: BP 158/76
[2019-09-27 05:44] LABS: CALCIUM 8.3 mg/dL (8.5-10.1); CREATININE 3.3 mg/dL (0.7-1.3); POTASSIUM 4.8 mmol/L (3.5-5.1)
[2019-09-27 07:11] VITALS: BP 169/89
--- NOTE | 2019-09-27 13:12 | NUR ---
ASSUMED CARE OF THE PT AT 0700. PT IS MINIMUM ASSIST WITH GAIT BELT AND WALKER. R FOREARM DRY AND INTACT. NO C/O PAIN. MEDS GIVEN FOR BP, SEE EMAR. TOLERATES MEALS WELL. SPOKE WITH PTS REGARDING PLAN OF CARE. BS CONTROLLED BY INSULIN, SEE EMAR. FALL PRECAUTIONS IN PLACE, BED/CHAIR LOCKED/ ALARM ON, CALL LIGHT IS WITHIN REACH. WILL CONTINUE TO MONITOR THE PT.
--- NOTE | 2019-09-27 13:50 | NUR ---
ON-GOING ASSESSMENT: LUDMILA REVIEWED CHART AND SPOKE WITH ATTENDING WHO STATES PT IS STABLE TO DISCHARGE HOME TODAY WITH HH. LUDMILA ORGINALLY SENT REFERRAL TO [facility] WHO PT WAS IN SERVICE WITH PRIOR TO ADMISSION. PT HAS ORDERS TO GO HOME TODAY WITH HH SO CM NOTIFIED DIRECTOR OF VIDEO ANALYTICS TO NOTIFY [facility]. LUDMILA SPOKE WITH PATIENTS TO NOTIFY HER AND SHE IS AGREEABLE WITH DISCHARGE. DIRECTOR OF VIDEO ANALYTICS WILL SENT HH ORDERS TO [facility].
[2019-09-27 14:31] VITALS: BP 183/87
--- NOTE | 2019-09-29 09:18 | HC ---
[facility] [place] [address] CONSULTATION Name: AMIE GUILLEN Room #: 435-P [facility] IN M.R.#: [id number] Admission: 09/21/19 Attend Phys: Tacho Baker MD Discharge: 09/27/19 Date of : 46 Report #: [id number] THIS REPORT FOR: cc: SOPHIA - Family physician unknown SOPHIA - Family physician unknown Leonardo Chamberlain MD ~ CC: SOPHIA unknown Tacho Baker DATE OF SERVICE: 09/22/2019 REASON FOR CONSULTATION: Chronic kidney disease. REASON FOR PRESENTATION: Brought by his upon the request from his primary care physician to treat his urinary tract infection. HISTORY OF PRESENT ILLNESS: This is obtained from the medical chart. 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 He is well known to me from a previous admission. He is a 68-year-old who had chronic kidney disease with a baseline creatinine in the mid 2s to upper 3s. He was recently hospitalized back in July with a creatinine of 3.0. He does not know the details of his kidney issues; however, previous ultrasound revealed bilateral renal cysts and he tells me that he is followed by some kidney doctor, but he is not really sure about the name of the kidney doctor. He presented yesterday because of his tele visit appointment with his primary care physician last week revealed that he has a urinary tract infection with multidrug resistant microorganism. I do not have the sensitivities, but his PCP requested that he go to the ER to be admitted for treatment with ertapenem. Unfortunately, further details are not available. When the patient presented to the hospital yesterday, his creatinine was 3.9 and has trended down to 2.9, which is very close to his baseline. He had marginally elevated potassium as well. I was asked to assist with the treatment of his chronic kidney disease. PAST MEDICAL HISTORY: 1. Chronic kidney disease. 2. Bilateral renal cysts. 3. History of cerebrovascular accident. 4. Diabetes mellitus. 5. Dementia. 6. Pancreatitis. PAST SURGICAL HISTORY: 1. Cholecystectomy. 2. Left knee surgery. [facility] [address] [place] [address] CONSULTATION Name: WILMERAMIE Room #: 435-P [facility] IN ..#: [id number] Admission: 09/21/19 Attend Phys: Tacho Baker MD Discharge: 09/27/19 Date of : 46 Report #: [id number] REVIEW OF SYSTEMS: Unobtainable given the patient's current confusion and mental status. MEDICATIONS: 1. Aspirin. 2. Metoprolol. 3. Clonidine. 4. Diltiazem. 5. Ceftin. ALLERGIES: None. SOCIAL HISTORY: I am not able to obtain the social history given the patient's current mental status. REVIEW OF SYSTEMS: I am not able to obtain due to the patient's current mental status. PHYSICAL EXAMINATION: VITAL SIGNS: Pulse rate is 71. Pulse ox is 97. Blood pressure is 145/76. HEAD AND NECK: No jugular venous distention. CHEST: No crackles. CARDIOVASCULAR: No rub detected. ABDOMEN: Soft, nontender. LOWER EXTREMITIES: No edema. LABORATORY VALUES: Reviewed. Hemoglobin is 10.0. Sodium is 136, potassium is 4.5, BUN is 39, creatinine is 2.9. UA is with negative nitrite. No red blood cells, no white blood cells. ASSESSMENT, IMPRESSION AND PLAN: 1. Chronic kidney disease at baseline. 2. Mild hyperkalemia. 3. Remote history of stroke with intellectual residual disability. 4. Urinary tract infection based on a telemedicine visit with his primary care physician. I do not have the records available. 5. The patient's chronic kidney disease seems to be at his baseline. He was recently discharged from the hospital with a creatinine of 3.0. I will continue with IV fluid for now. We will reach out to his family members to obtain further details about his chronic kidney disease and follow up. 6. We need to obtain the urine culture from his primary care physician. 7. Resume blood pressure medication. 8. Continue to follow urine output. 9. Continue to follow electrolytes and renal function. [address] [address] CONSULTATION Name: AMIE GUILLEN Room #: 435-P [facility] IN M.R.#: [id number] Admission: 09/21/19 Attend Phys: Tacho Baker MD Discharge: 09/27/19 Date of : 46 Report #: [id number] 10. Avoid nephrotoxins. 11. We will continue to follow during his hospital stay. <ELECTRONICALLY SIGNED> By: Leonardo Chamberlain MD 09/29/19 0918 [id number] [id number] Leonardo Chamberlain MD /nt
== END 2019-09-27 15:44 | disposition home health service (06) | DRG 682 ==
LOC: ER 17:34 → 4S 19:03 → EROBS 19:03 → 4S 20:42
PROVIDERS: Hospitalist; Nurse Practitioner Family; ADMIT Internal Medicine; ATTEND Internal Medicine
DX: N17.9 Acute kidney failure, unspecified (principal); G92 Toxic encephalopathy; N39.0 Urinary tract infection, site not specified; I69.354 Hemiplegia and hemiparesis following cerebral infarction affecting left non-dominant side; Z16.35 Resistance to multiple antimicrobial drugs; N18.4 Chronic kidney disease, stage 4 (severe); I12.9 Hypertensive chronic kidney disease with stage 1 through stage 4 chronic kidney disease, or unspecified chronic kidney disease; E11.22 Type 2 diabetes mellitus with diabetic chronic kidney disease; E78.5 Hyperlipidemia, unspecified; E87.5 Hyperkalemia; D63.8 Anemia in other chronic diseases classified elsewhere; E53.8 Deficiency of other specified B group vitamins; G47.00 Insomnia, unspecified; N40.0 Benign prostatic hyperplasia without lower urinary tract symptoms; B96.20 Unspecified Escherichia coli [E. coli] as the cause of diseases classified elsewhere; B96.5 Pseudomonas (aeruginosa) (mallei) (pseudomallei) as the cause of diseases classified elsewhere; F03.90 Unspecified dementia, unspecified severity, without behavioral disturbance, psychotic disturbance, mood disturbance, and anxiety; Z79.899 Other long term (current) drug therapy; Z90.49 Acquired absence of other specified parts of digestive tract; Z79.82 Long term (current) use of aspirin; Z87.440 Personal history of urinary (tract) infections
CPT/HCPCS: 10100; 10195

== ENCOUNTER 2019-12-09 14:13 | Inpatient (IN) | payer MEDICARE ==
[~2019-12-09] VITALS: Ht 172.7 cm; Wt 65.3 kg
[2019-12-09 01:00] VITALS: BP 157/86
[~2019-12-09 14:13] MED LIST changes: +CARTIA XT240 M1 PO; +NORVASC 2.5 MG2.5 M1 PO
[2019-12-09 14:17] VITALS: BP 140/68
[2019-12-09 14:48] LABS: ABSOLUTE NEUTROPHILS 7.3 thou/uL (1.4-8.2); BASOPHILS 0.4 % (0.0-2.0); EOSINOPHILS 1.5 % (0.0-3.0); HEMATOCRIT 31.5 % (42.0-52.0); HEMOGLOBIN 10.3 gm/dL (14.0-18.0); LYMPHOCYTES 13.7 % (24.0-44.0); MCH 29.3 pg (26.0-34.0); MCHC 32.7 g/dL (28.0-37.0); MCV 89.5 fL (80.0-100.0); MONOCYTES 6.4 % (1.0-8.0); PLATELET COUNT 189 thou/uL (150-400); RBC 3.51 mil/uL (4.50-6.00); RDW 14.1 % (10.5-14.5); WBC 9.4 thou/uL (4.0-11.0)
[2019-12-09 14:54] LABS: CALCIUM 8.2 mg/dL (8.5-10.1); CREATININE 3.5 mg/dL (0.7-1.3); POTASSIUM 4.6 mmol/L (3.5-5.1)
[2019-12-09 15:10] LABS: URINE BILIRUBIN NEGATIVE (Negative); URINE BLOOD TRACE (Negative); URINE COLOR YELLOW; URINE GLUCOSE-RANDOM* NEGATIVE (Negative); URINE KETONES NEGATIVE (Negative); URINE LEUKOCYTES-REFLEX NEGATIVE (Negative); URINE NITRITE-REFLEX NEGATIVE (Negative); URINE PROTEIN (DIPSTICK) 2+ (Negative); URINE UROBILINOGEN 0.2 E.U./dl (0.2-1.0)
[2019-12-09 15:11] LABS: URINE CLARITY SL HAZY
[2019-12-09 15:18] LABS: URINE RBC None Seen /HPF (0-2); URINE WBC-REFLEX 0-5 Rare /HPF (0-5)
[2019-12-09 15:19] LABS: CRYSTALS None Seen /LPF (None Seen)
[2019-12-09 15:20] LABS: SQUAMOUS 0-3 Few /LPF (0-3)
[2019-12-09 15:21] LABS: HYALINE CASTS 0-3 Few /LPF (None Seen)
[2019-12-09] MEDS ORDERED: KEFLEX500 M1 PO (17:48)
[2019-12-09 20:42] VITALS: BP 189/91
--- NOTE | 2019-12-09 20:54 | NUR ---
ATTEMPTING TO CALL REPORT TO 4W, NO ANSWER AFTER 3 MINUTES
--- NOTE | 2019-12-09 20:59 | NUR ---
ATTEMPTED TO CALL REPORT X2, NO ANSWER ON 4W
--- NOTE | 2019-12-09 21:00 | NUR ---
ATTEMPTED TO CALL REPORT X3, NO ANSWER ON 4W
[2019-12-09 21:01] VITALS: BP 198/87
[2019-12-09 21:15] VITALS: BP 198/85; BP 205/82
[2019-12-09 23:58] VITALS: BP 198/85
[2019-12-10] VITALS (7 sets, daily range): BP systolic 145–174; BP diastolic 62–86
--- NOTE | 2019-12-10 00:52 | NUR ---
PATIENT ARRIVED PER CART. IS ALERT X 2-3. GETS CONFUSED AT TIMES. INCONT OF URINE AND BOWEL. IV IN RIGHT WRIST. PATENT WITH FLUIDS INFUSING PER ORDERS. BS DONE AND WAS 196 WITH 3 UNITS OF INSULIN. BP HIGH 198/85 HYDRALIZINE GIVEN PER ORDWERS. NO SKIN PROBLEMS NOTED. NO EDEMA NOTED. LUNGS CTA-DISM. PP 1/2. INCONT OF URINE VOIDED LARGE AMOUNT IN BREIF. SKIN DRY ON BILATERAL FEET. CONT PLAN OF CARE, CONT PLAN OF CARE.
--- NOTE | 2019-12-10 08:34 | EKG ---
[facility] [place] [address] ELECTROCARDIOGRAM REPORT Name: AMIE GUILLEN Room #: 453-P ADM IN M.R.#: [id number] Admission: 12/09/19 Attend Phys: Jesus Turcios MD Discharge: Date of : 46 Report #: [id number] THIS REPORT FOR: cc: SOPHIA - Family physician unknown FAM - Family physician unknown Williams Albarado MD [facility] ~ THIS REPORT FOR: //name// [facility] ED Test Date: 2019-12-09 Test Time: 14:47:06 Pat Name: AMIE GUILLEN Department: Room: [facility] Gender: M Manager Behavioral: ANDREW : 1950 Requested By: Neftali Murphy Order Number: [id number] MD: Williams Albarado Measurements Intervals [place] Rate: 61 P: 22 ME: 144 QRS: -18 QRSD: 104 T: 31 QT: 411 QTc: 414 Interpretive Statements Sinus rhythm Borderline left axis deviation Abnormal R-wave progression, early transition Abnrm T, consider ischemia, anterolateral lds ST elevation, longstanding Compared to ECG 09/21/2019 19:51:49 No significant change was found Electronically Signed On 12-10-2019 8:34:01 CDT by Williams Albarado [email or web address] <ELECTRONICALLY SIGNED> By: Williams Albarado MD, [facility] 12/10/19 0834 [id number] [id number] Williams Albarado MD, [facility] /EPI
--- NOTE | 2019-12-10 14:36 | NUR ---
PT ADMITTED RELATED TO R/O UTI AND CVA. CM REVIEWED CHART AND SPOKE WITH CARE TEAM. CM CALLED AND SPOKE WITH PT'S SPOUSE SHE INDICATED THAT SHE AND PT RESIDE IN AN APARTMENT WITH 5 STEPS AND A RAMP TO ENTER. SHE INDICATED THAT PT HADN'T BEEN USING ANY ASSIISTIVE DEVICES MUSIC PUBLICIST A FWW DOESN'T FIT IN THEIR APARTMENT. SHE INDICATED THAT SHE GUIDES PT THROUGHOUT APT. SHE STATED PT HAS GRAB BARS, SHOWER CHAIR, AND HANDICAPPED TOILET FOR HOME USE. PT HAS USED [facility] IN THE PAST AND WOULD LIKE TO USE THEM AGAIN UPON DC. SHE ONLY WANTS NURSING. THIS WAS CONVEYED TO PHYSICIAN. PT AND OT RECOMMENDING POST ACUTE CARE STAY. THIS WAS CONVEYED TO SPOUSE WHO INDICATED THAT SHE WOULD PREFER PT TO DC HOME WITH [facility] NURSING. SHE STATED THAT HE HAD BEEN TO [facility] IN PAST AND THAT HE WASN'T MUCH IMPROVED UPON DC FROM THERE. CM NOTIFED PHYSICAN HE IS AGREEABLE WITH DC HOME WITH NURSING THIS DAY. REFERRAL SENT TO [facility]. CM TO FAX ORDERS ONCE COMPLETED. SPOUSE CAN TRANSPORT.
--- NOTE | 2019-12-10 14:54 | NUR ---
ASSUMED CARE OF PATIENT AT SHIFT CHANGE. ASSESSMENT CHARTED. MEDICATION GIVEN PER JUN. VSS. BP IMPROVED FROM LAST NIGHT, NO PRN BP MEDS NEEDED. PATIENT IS A&OX3 WITH CONFUSION. PATIENT IS VOIDING PER URINAL BUT HAS BEEN HAVING EPISODES OF INCONTINENCE. PATIENT WORKED WITH PT AND OT. HAS BEEN TALKING ABOUT HIS COMING TO PICK HIM UP SINCE THIS AM. TREATMENT TEAM DISCUSSED HIS D/C NEEDS WITH AND DETERMINED HE WILL D/C TO HOME WITH HH TODAY. WILL CONTINUE TO MONITOR AND FOLLOW POC
--- NOTE | 2019-12-10 15:37 | NUR ---
PATIENT IS RESTING IN BED W TV ON. NOTIFIED OF DISCHARGE AND WILL BE HERE TO [place] E[employer]OMIST PATIENT IN APPROX. 30 MINS. FLUIDS AND IV DISCONTINUED; FALL PRECAUTIONS REMAIN IN PLACE
== END 2019-12-10 16:32 | disposition home health service (06) | DRG 689 ==
LOC: ER 14:13 → 4W 19:39 → EROBS 19:39 → 4W 21:17
PROVIDERS: Emergency Medicine; ADMIT Internal Medicine; ATTEND Internal Medicine
DX: N39.0 Urinary tract infection, site not specified (principal); G92 Toxic encephalopathy; I69.354 Hemiplegia and hemiparesis following cerebral infarction affecting left non-dominant side; D64.9 Anemia, unspecified; E78.5 Hyperlipidemia, unspecified; N18.9 Chronic kidney disease, unspecified; F03.90 Unspecified dementia, unspecified severity, without behavioral disturbance, psychotic disturbance, mood disturbance, and anxiety; K21.9 Gastro-esophageal reflux disease without esophagitis; E11.22 Type 2 diabetes mellitus with diabetic chronic kidney disease; I12.9 Hypertensive chronic kidney disease with stage 1 through stage 4 chronic kidney disease, or unspecified chronic kidney disease; Z90.49 Acquired absence of other specified parts of digestive tract; Z79.82 Long term (current) use of aspirin; Z79.899 Other long term (current) drug therapy
CPT/HCPCS: 10040